=== PATIENT | male | born 1950 | race Caucasian/White ===

== ENCOUNTER 2017-11-25 20:48 | Emergency (ER) | payer BC, OTHER ==
[2017-11-25] MEDS ORDERED: Sodium Chloride 0.9% 10 ML Syringe FLUSH PRN (20:53)
[2017-11-25] MEDS ORDERED: Sodium Chloride 0.9% 1,000 ML IV ONE (20:53)
[2017-11-25] MEDS ORDERED: Sodium Chloride 0.9% 2.5 ML Syringe FLUSH PRN ×2 (20:53)
[2017-11-25] MEDS ORDERED: Aspirin 81 MG Tab.Chew PO ONE (20:53)
[2017-11-25] MEDS ORDERED: Nitroglycerin 0.4 MG Tab.SL SL ONE (20:53)
--- NOTE | 2017-11-25 21:06 | EDM.PDOC ---
ED HPI GENERAL MEDICAL PROBLEM - General Chief Complaint: General Stated Complaint: PAIN DOWN THE LT ARM Time Seen by Provider: 11/25/17 20:52 Source of Information: Reports: Patient History Limitations: Reports: No Limitations - History of Present Illness INITIAL COMMENTS - FREE TEXT/NARRATIVE: HISTORY AND PHYSICAL: History of present illness: 67-year-old male presenting to emergency department with chief complaint of chest pain 2 days with past medical history of [place] with stent on Plavix, hypertension, hyperlipidemia, current smoker. Patient states that for the past 2 days he has been having intermittent chest pain with radiation into the left arm. Currently he states that he is not having really any chest pain but is having some left arm pain. He has had some associated shortness of breath and diaphoresis but no nausea and vomiting. States that he took a baby aspirin today. He is on Plavix from his previous [place] which was 6 years ago. He did have a stent placed by Dr. Morales in [place] at that time. He has seen Dr. Morales in September and follows with Dr. Cortez in [place] as his primary care provider. Patient is a current smoker and states that he smokes a pack and half cigarettes daily for greater than 50 years. Denies any leg pain or hemoptysis. Denies any associated pop patients, syncopal episodes, or focal neurologic deficits. Initial EKG shows normal sinus rhythm with a rate of [address] changes. Review of systems: As per history of present illness and below otherwise all systems reviewed and negative. Past medical history: As per history of present illness and as reviewed below otherwise noncontributory. Surgical history: As per history of present illness and as reviewed below otherwise noncontributory. Social history: No reported history of drug or alcohol abuse. Family history: As per history of present illness and as reviewed below otherwise noncontributory. Physical exam: HEENT: Atraumatic, normocephalic, pupils reactive, negative for conjunctival pallor or scleral icterus, mucous membranes moist, throat clear, neck supple, nontender, trachea midline. Lungs: Clear to auscultation, breath sounds equal bilaterally, chest nontender. Heart: S1S2, regular, negative for clicks, rubs, or JVD. Abdomen: Soft, nondistended, nontender. Negative for masses or hepatosplenomegaly. Negative for costovertebral tenderness. Pelvis: Stable nontender. Genitourinary: Deferred. Rectal: Deferred. Extremities: Atraumatic, negative for cords or calf pain. Neurovascular unremarkable. Neuro: Awake, alert, oriented. Cranial nerves II through XII unremarkable. Cerebellum unremarkable. Motor and sensory unremarkable throughout. Exam nonfocal. Diagnostics: CBC, CMP, troponin, INR, d-dimer, UA, EKG, chest x-ray Therapeutics: 324 mg ASA 1, 0.4 mg sublingual nitroglycerin Impression: Chest pain Acute coronary syndrome Plan: CBC, CMP, troponin unremarkable. D-dimer was elevated mildly but Wells criteria low for PE. As above EKG showed normal sinus rhythm with no significant ST changes. Secondary to patient's cardiac history and acute coronary syndrome I did call Dr. Plasencia [facility], who accepted the patient for transfer for ACS. Patient was currently not having any chest pain in stable. Ground ambulance appropriate. Definitive disposition and diagnosis as appropriate pending reevaluation and review of above. left arm pain Pain Score (Numeric/FACES): 0 - Related Data Allergies Allergy/AdvReac Type Severity Reaction Status Date / Time Penicillins Allergy Difficulty Verified 08/13/14 19:52 Breathing Home Meds: Home Meds Albuterol [Proventil Neb Soln] 1 puff INH Q6H PRN 09/17/13 [History] Aspirin [Sera Chewable] 81 mg PO DAILY 09/17/13 [History] Clopidogrel [Plavix] 75 mg PO DAILY 09/17/13 [History] Metoprolol Succinate [Toprol XL 50mg] 50 mg PO DAILY 09/17/13 [History] atorvaSTATin [Lipitor] 20 mg PO BEDTIME 09/17/13 [History] Albuterol/Ipratropium [Combivent Respimat] 0 gm IH 11/25/17 [History] Fluticasone/Salmeterol [Advair 250-50] 1 puff INH DAILY 11/25/17 [History] Past Medical History HEENT History: Reports: Impaired Vision Cardiovascular History: Reports: High Cholesterol, Hypertension, [place], Stents Respiratory History: Reports: Asthma, Other (See Below) Other Respiratory History: smoker Genitourinary History: Reports: None Musculoskeletal History: Reports: Arthritis Neurological History: Reports: None Psychiatric History: Reports: None Endocrine/Metabolic History: Reports: None Dermatologic History: Reports: None - Infectious Disease History Infectious Disease History: Reports: Chicken Pox, Measles - Past Surgical History GI Surgical History: Reports: Appendectomy Male Surgical History: Reports: None Social & Family History - Family History Family Medical History: Noncontributory - Tobacco Use Smoking Status *Q: Current Every Day Smoker Years of Tobacco use: 50 Packs/Tins Daily: 1.5 - Recreational Drug Use Recreational Drug Use: No ED ROS GENERAL - Review of Systems Review Of Systems: ROS reveals no pertinent complaints other than HPI. ED EXAM, GENERAL - Physical Exam Exam: See Below Course - Vital Signs Last Recorded V/S: Last Vital Signs Temp 97.8 F 11/25/17 20:50 Pulse 70 11/25/17 21:17 Resp 18 11/25/17 21:17 BP 112/72 11/25/17 21:17 Pulse Ox 95 11/25/17 21:17 - Orders/Labs/Meds Orders: Active Orders 24 hr Category Date Time Status Cardiac Monitoring [RC] . DIRECTED Care 11/25/17 20:53 Active Oxygen Therapy [RC] ASDIRECTED Care 11/25/17 20:53 Active Pulse Oximetry [RC] ASDIRECTED Care 11/25/17 20:53 Active Chest 1V Frontal [CR] Stat Exams 11/25/17 20:53 Taken Sodium Chloride 0.9% [Saline Flush] Med 11/25/17 20:53 Active 10 ml FLUSH ASDIRECTED PRN Sodium Chloride 0.9% [Saline Flush] Med 11/25/17 20:53 Active 2.5 ml FLUSH ASDIRECTED PRN Sodium Chloride 0.9% [Saline Flush] Med 11/25/17 20:53 Active 2.5 ml FLUSH ASDIRECTED PRN Saline Lock Insert [OM.PC] Stat Oth 11/25/17 20:53 Ordered Medication Orders Sodium Chloride (Saline Flush) 2.5 ml FLUSH ASDIRECTED PRN PRN Reason: Keep Vein Open Sodium Chloride (Saline Flush) 10 ml FLUSH ASDIRECTED PRN PRN Reason: Keep Vein Open Sodium Chloride (Saline Flush) 2.5 ml FLUSH ASDIRECTED PRN PRN Reason: Keep Vein Open Labs: Laboratory Tests 11/25/17 11/25/17 11/25/17 Range/Units 21:04 21:04 21:04 WBC 11.93 H (4.0-11.0) K/uL RBC 4.97 (4.50-5.90) M/uL Hgb 15.8 (13.0-17.0) g/dL Hct 45.0 (38.0-50.0) % MCV 90.5 (80.0-98.0) fL MCH 31.8 (27.0-32.0) pg MCHC 35.1 (31.0-37.0) g/dL RDW Std Deviation 42.4 (28.0-62.0) fl RDW Coeff of Elizabeth 13 (11.0-15.0) % Plt Count 222 (150-400) K/uL MPV 10.20 (7.40-12.00) fL Neut % (Auto) 61.9 (48.0-80.0) % Lymph % (Auto) 23.3 (16.0-40.0) % [place] % (Auto) 12.7 (0.0-15.0) % Eos % (Auto) 1.9 (0.0-7.0) % Baso % (Auto) 0.2 (0.0-1.5) % Neut # (Auto) 7.4 H (1.4-5.7) K/uL Lymph # (Auto) 2.8 H (0.6-2.4) K/uL [place] # (Auto) 1.5 H (0.0-0.8) K/uL Eos # (Auto) 0.2 (0.0-0.7) K/uL Baso # (Auto) 0.0 (0.0-0.1) K/uL Nucleated RBC % 0.0 /100WBC Nucleated RBCs # 0 K/uL INR 0.97 D-Dimer, Quantitative 1.63 H (0.0-0.52) mg/LFEU Sodium 136 (136-148) mmol/L Potassium 3.7 (3.5-5.1) mmol/L Chloride 101 (98-107) mmol/L Carbon Dioxide 26.2 (21.0-32.0) mmol/L BUN 31 H (7.0-18.0) mg/dL Creatinine 1.6 H (0.8-1.3) mg/dL Est Cr Clr Drug Dosing 55.00 mL/min Estimated GFR (MDRD) 43.3 ml/min Glucose 100 (74-106) mg/dL Calcium 9.2 (8.5-10.1) mg/dL Total Bilirubin 0.3 (0.2-1.0) mg/dL AST 32 (15-37) IU/L ALT 31 (14-63) IU/L Alkaline Phosphatase 69 (46-116) U/L Troponin I < 0.050 (0.000-0.056) ng/mL Total Protein 7.3 (6.4-8.2) g/dL Albumin 3.9 (3.4-5.0) g/dL Globulin 3.4 (2.0-3.5) g/dL Albumin/Globulin Ratio 1.1 L (1.3-2.8) Lipase 118 (73-393) U/L Urine Color Urine Appearance Urine pH (5.0-8.0) Ur Specific [place] (1.001-1.035) Urine Protein (NEGATIVE) mg/dL Urine Glucose (UA) (NEGATIVE) mg/dL Urine Ketones (NEGATIVE) mg/dL Urine Occult Blood (NEGATIVE) Urine Nitrite (NEGATIVE) Urine Bilirubin (NEGATIVE) Urine Urobilinogen (<2.0) EU/dL Ur Leukocyte Esterase (NEGATIVE) Urine RBC (0-2/HPF) Urine WBC (0-5/HPF) Ur Epithelial Cells (NONE-FEW) Urine Bacteria (NEGATIVE) 11/25/17 Range/Units 21:22 WBC (4.0-11.0) K/uL RBC (4.50-5.90) M/uL Hgb (13.0-17.0) g/dL Hct (38.0-50.0) % MCV (80.0-98.0) fL MCH (27.0-32.0) pg MCHC (31.0-37.0) g/dL RDW Std Deviation (28.0-62.0) fl RDW Coeff of [place] (11.0-15.0) % Plt Count (150-400) K/uL MPV (7.40-12.00) fL Neut % (Auto) (48.0-80.0) % Lymph % (Auto) (16.0-40.0) % [place] % (Auto) (0.0-15.0) % Eos % (Auto) (0.0-7.0) % Baso % (Auto) (0.0-1.5) % Neut # (Auto) (1.4-5.7) K/uL Lymph # (Auto) (0.6-2.4) K/uL [place] # (Auto) (0.0-0.8) K/uL Eos # (Auto) (0.0-0.7) K/uL Baso # (Auto) (0.0-0.1) K/uL Nucleated RBC % /100WBC Nucleated RBCs # K/uL INR D-Dimer, Quantitative (0.0-0.52) mg/LFEU Sodium (136-148) mmol/L Potassium (3.5-5.1) mmol/L Chloride (98-107) mmol/L Carbon Dioxide (21.0-32.0) mmol/L BUN (7.0-18.0) mg/dL Creatinine (0.8-1.3) mg/dL Est Cr Clr Drug Dosing mL/min Estimated GFR (MDRD) ml/min Glucose (74-106) mg/dL Calcium (8.5-10.1) mg/dL Total Bilirubin (0.2-1.0) mg/dL AST (15-37) IU/L ALT (14-63) IU/L Alkaline Phosphatase (46-116) U/L Troponin I (0.000-0.056) ng/mL Total Protein (6.4-8.2) g/dL Albumin (3.4-5.0) g/dL Globulin (2.0-3.5) g/dL Albumin/Globulin Ratio (1.3-2.8) Lipase (73-393) U/L Urine Color YELLOW Urine Appearance CLEAR Urine pH 6.0 (5.0-8.0) Ur Specific [place] <= 1.005 (1.001-1.035) Urine Protein NEGATIVE (NEGATIVE) mg/dL Urine Glucose (UA) NEGATIVE (NEGATIVE) mg/dL Urine Ketones NEGATIVE (NEGATIVE) mg/dL Urine Occult Blood NEGATIVE (NEGATIVE) Urine Nitrite NEGATIVE (NEGATIVE) Urine Bilirubin NEGATIVE (NEGATIVE) Urine Urobilinogen 0.2 (<2.0) EU/dL Ur Leukocyte Esterase NEGATIVE (NEGATIVE) Urine RBC 0-1 (0-2/HPF) Urine WBC 0-1 (0-5/HPF) Ur Epithelial Cells RARE (NONE-FEW) Urine Bacteria RARE (NEGATIVE) Meds: Medications Generic Name Dose Route Start Last Admin Trade Name Ashley PRN Reason Stop Dose Admin Sodium Chloride 2.5 ml 11/25/17 20:53 Saline Flush FLUSH ASDIRECTED PRN Keep Vein Open Sodium Chloride 10 ml 11/25/17 20:53 Saline Flush FLUSH ASDIRECTED PRN Keep Vein Open Sodium Chloride 2.5 ml 11/25/17 20:53 Saline Flush FLUSH ASDIRECTED PRN Keep Vein Open Discontinued Medications Generic Name Dose Route Start Last Admin Trade Name Ashley PRN Reason Stop Dose Admin Aspirin 324 mg 11/25/17 20:53 11/25/17 21:10 Aspirin PO 11/25/17 20:54 324 mg ONETIME ONE Administration Sodium Chloride 1,000 mls @ 999 mls/hr 11/25/17 20:53 11/25/17 21:09 Normal Saline IV 11/25/17 21:53 999 mls/hr BOLUS ONE Administration Nitroglycerin 0.4 mg 11/25/17 20:53 11/25/17 21:08 Nitrostat SL 11/25/17 20:54 0.4 mg ONETIME ONE Administration Departure - Departure Time of Disposition: 22:04 Disposition: DC/Tfer to Acute Hospital 02 Condition: Fair Clinical Impression: Acute coronary syndrome Chest pain Qualifiers: Chest pain type: chest pain due to myocardial ischemia Ischemic chest pain type : unspecified angina pectoris type Qualified Code(s): I25.9 - Chronic ischemic heart disease, unspecified - Discharge Information Forms: ED Department Discharge - My Orders Last 24 Hours: My Active Orders 11/25/17 20:53 Cardiac Monitoring [RC] . DIRECTED Oxygen Therapy [RC] ASDIRECTED Pulse Oximetry [RC] ASDIRECTED Chest 1V Frontal [CR] Stat Sodium Chloride 0.9% [Saline Flush] 10 ml FLUSH ASDIRECTED PRN Sodium Chloride 0.9% [Saline Flush] 2.5 ml FLUSH ASDIRECTED PRN Sodium Chloride 0.9% [Saline Flush] 2.5 ml FLUSH ASDIRECTED PRN Saline Lock Insert [OM.PC] Stat - Assessment/Plan Last 24 Hours: My Active Orders 11/25/17 20:53 Cardiac Monitoring [RC] . DIRECTED Oxygen Therapy [RC] ASDIRECTED Pulse Oximetry [RC] ASDIRECTED Chest 1V Frontal [CR] Stat Sodium Chloride 0.9% [Saline Flush] 10 ml FLUSH ASDIRECTED PRN Sodium Chloride 0.9% [Saline Flush] 2.5 ml FLUSH ASDIRECTED PRN Sodium Chloride 0.9% [Saline Flush] 2.5 ml FLUSH ASDIRECTED PRN Saline Lock Insert [OM.PC] Stat
[2017-11-25 21:35] LABS: CHLORIDE,CL 101 mmol/L (98-107); SODIUM,NA 136 mmol/L (136-148)
[2017-11-25 22:08] VITALS: BP 130/67
--- NOTE | 2017-11-27 14:02 | CR ---
EXAM DATE: 11/25/17 PATIENT'S AGE: 67 Patient: THALIA STACY Facility: [facility] Site . Site : 1950 Study: XRay-Chest [id number] 9:30:49 PM Ordering Physician: Doctor Peters Final Report: INDICATION: left arm pain, pt states he is not having chest pain TECHNIQUE: Chest 1 view. COMPARISON: None. FINDINGS: Cardiovascular and mediastinum: Heart size and vasculature are normal in caliber and appearance. Mediastinum is within normal limits. Lungs and pleural space: Lungs are clear. No sign of infiltrate or mass. No sign of pleural effusion. No pneumothorax. Bones and soft tissues: No significant findings. IMPRESSION: Unremarkable chest. Dictated by: Clive Naik MD @ 11/25/2017 21:32:00 Signed by: Clive Naik MD @11/25/2017 9:32:00 PM (Electronic Signature) Report Signed by Proxy. [facility]PITAL[facility]ila
== END 2017-11-25 22:50 ==
LOC: MW.ED 20:48
DX: I24.9 Acute ischemic heart disease, unspecified (principal); I10 Essential (primary) hypertension; I25.2 Old myocardial infarction; Z95.5 Presence of coronary angioplasty implant and graft; E78.5 Hyperlipidemia, unspecified; F17.210 Nicotine dependence, cigarettes, uncomplicated; Z88.0 Allergy status to penicillin; Z79.82 Long term (current) use of aspirin; Z79.899 Other long term (current) drug therapy
CPT/HCPCS: 36415; 71045; 80053; 81001; 83690; 84484; 85025; 85379; 85610; 93005; 96360; 99285; A9270; J7040

== ENCOUNTER 2018-08-20 08:13 | Emergency (ER) | payer MEDICARE, BC ==
[2018-08-20 08:28] VITALS: BP 97/79
--- NOTE | 2018-08-20 09:34 | CR ---
EXAMINATION: Left knee HISTORY: Pain COMPARISON: 01/06/2018 TECHNIQUE: 3 views FINDINGS/IMPRESSION: There is moderate joint space narrowing within the patellofemoral compartment and more so within the medial compartment. There is no fracture or acute osseous abnormality. Bone mineralization is normal. Moderate prepatellar soft tissue thickening.
--- NOTE | 2018-08-20 09:41 | EDM.PDOC ---
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 Past medical history: As per history of present illness and as reviewed below otherwise noncontributory. Surgical history: As per history of present illness and as reviewed below otherwise noncontributory. Social history: No reported history of drug or alcohol abuse. Family history: As per history of present illness and as reviewed below otherwise noncontributory. Physical exam: HEENT: Atraumatic, normocephalic, pupils reactive, negative for conjunctival pallor or scleral icterus, mucous membranes moist, throat clear, neck supple, nontender, trachea midline. Lungs: Clear to auscultation, breath sounds equal bilaterally, chest nontender. Heart: S1S2, regular, negative for clicks, rubs, or JVD. Abdomen: Soft, nondistended, nontender. Negative for masses or hepatosplenomegaly. Negative for costovertebral tenderness. Pelvis: Stable nontender. Genitourinary: Deferred. Rectal: Deferred. Extremities: Atraumatic, negative for cords or calf pain. Neurovascular unremarkable. Left knee as per history of present illness Neuro: Awake, alert, oriented. Cranial nerves II through XII unremarkable. Cerebellum unremarkable. Motor and sensory unremarkable throughout. Exam nonfocal. Diagnostics: [ of knee 3 views ] Therapeutics: [ rest ice Indocin 1 week off of work] Follow-up with orthopedist Impression: Left knee pain Definitive disposition and diagnosis as appropriate pending reevaluation and review of above. left knee Pain Score (Numeric/FACES): 8 - Related Data Allergies Allergy/AdvReac Type Severity Reaction Status Date / Time Penicillins Allergy Difficulty Verified 08/13/14 19:52 Breathing Home Meds: Home Meds Albuterol [Proventil Neb Soln] 1 puff INH Q6H PRN 09/17/13 [History] Aspirin [Sera Chewable] 81 mg PO DAILY 09/17/13 [History] Clopidogrel [Plavix] 75 mg PO DAILY 09/17/13 [History] atorvaSTATin [Lipitor] 20 mg PO BEDTIME 09/17/13 [History] Albuterol/Ipratropium [Combivent Respimat] 0 gm IH 11/25/17 [History] Fluticasone/Salmeterol [Advair 250-50] 1 puff INH DAILY 11/25/17 [History] oxyCODONE tab PO 08/20/18 [History] Past Medical History HEENT History: Reports: Impaired Vision Cardiovascular History: Reports: High Cholesterol, Hypertension, [place], Stents Other Cardiovascular History: heart surgery in april 2018 Respiratory History: Reports: Asthma, Other (See Below) Other Respiratory History: smoker Genitourinary History: Reports: None Musculoskeletal History: Reports: Arthritis Neurological History: Reports: None Psychiatric History: Reports: None Endocrine/Metabolic History: Reports: None Dermatologic History: Reports: None - Infectious Disease History Infectious Disease History: Reports: Chicken Pox, Measles - Past Surgical History GI Surgical History: Reports: Appendectomy Male Surgical History: Reports: None Social & Family History - Family History Family Medical History: Noncontributory - Tobacco Use Smoking Status *Q: Former Smoker Used Tobacco, but Quit: Yes Month/Year Tobacco Last Used: 04/2018 - Recreational Drug Use Recreational Drug Use: No Review of Systems - Review of Systems Review Of Systems: See Below ED EXAM, GENERAL - Physical Exam Exam: See Below Course - Vital Signs Last Recorded V/S: Last Vital Signs Temp 96.5 F 08/20/18 08:25 Pulse 79 08/20/18 08:25 Resp 18 08/20/18 08:25 BP 97/79 08/20/18 08:25 Pulse Ox 95 08/20/18 08:25 - Orders/Labs/Meds Labs: Laboratory Tests 08/20/18 08/20/18 Range/Units 08:43 08:43 WBC 8.16 (4.0-11.0) K/uL RBC 4.81 (4.50-5.90) M/uL Hgb 14.1 (13.0-17.0) g/dL Hct 43.1 (38.0-50.0) % MCV 89.6 (80.0-98.0) fL MCH 29.3 (27.0-32.0) pg MCHC 32.7 (31.0-37.0) g/dL RDW Std Deviation 44.9 (28.0-62.0) fl RDW Coeff of Elizabeth 14 (11.0-15.0) % Plt Count 214 (150-400) K/uL MPV 10.20 (7.40-12.00) fL Neut % (Auto) 63.8 (48.0-80.0) % Lymph % (Auto) 23.4 (16.0-40.0) % [place] % (Auto) 10.3 (0.0-15.0) % Eos % (Auto) 2.3 (0.0-7.0) % Baso % (Auto) 0.2 (0.0-1.5) % Neut # (Auto) 5.2 (1.4-5.7) K/uL Lymph # (Auto) 1.9 (0.6-2.4) K/uL [place] # (Auto) 0.8 (0.0-0.8) K/uL Eos # (Auto) 0.2 (0.0-0.7) K/uL Baso # (Auto) 0.0 (0.0-0.1) K/uL Nucleated RBC % 0.0 /100WBC Nucleated RBCs # 0 K/uL Uric Acid 6.2 (2.6-7.2) mg/dL Departure - Departure Time of Disposition: 09:40 Disposition: Home, Self-Care 01 Condition: Good Clinical Impression: Left knee pain - Discharge Information Referrals: PCP,None [Primary Care Provider] - Forms: ED Department Discharge Additional Instructions: Medication as prescribed Return if symptoms persist or worsen Follow-up with orthopedist, call phone number below to schedule appropriate follow-up [facility] [address], [address] [place] [address] my orthopedic The following information is given to patients seen in the emergency department who are being discharged to home. This information is to outline your options for follow-up care. We provide all patients seen in our emergency department with a follow-up referral. The need for follow-up, as well as the timing and circumstances, are variable depending upon the specifics of your emergency department visit. If you don't have a primary care physician on staff, we will provide you with a referral. We always advise you to contact your personal physician following an emergency department visit to inform them of the circumstance of the visit and for follow-up with them and/or the need for any referrals to a consulting specialist. The emergency department will also refer you to a specialist when appropriate. This referral assures that you have the opportunity for follow-up care with a specialist. All of these measure are taken in an effort to provide you with optimal care, which includes your follow-up. Under all circumstances we always encourage you to contact your private physician who remains a resource for coordinating your care. When calling for follow-up care, please make the office aware that this follow-up is from your recent emergency room visit. If for any reason you are refused follow-up, please contact the [facility] emergency department at and asked to speak to the emergency department charge nurse.
== END 2018-08-20 09:55 | disposition home or self-care (01) ==
LOC: MW.ED 08:13
DX: M25.562 Pain in left knee (principal); E78.00 Pure hypercholesterolemia, unspecified; I10 Essential (primary) hypertension; J45.909 Unspecified asthma, uncomplicated; Z88.0 Allergy status to penicillin; Z79.82 Long term (current) use of aspirin; Z79.899 Other long term (current) drug therapy; Z79.02 Long term (current) use of antithrombotics/antiplatelets; Z87.891 Personal history of nicotine dependence
CPT/HCPCS: 36415; 73562-26-LT; 73562-LT; 84550; 85025; 99282; 99283-25

== ENCOUNTER 2018-10-18 15:02 | Emergency (ER) | payer BC, OTHER ==
[2018-10-18] MEDS ORDERED: Albuterol/Ipratropium 3.0-0.5 MG/3 ML Neb Soln NEB ONE (15:09)
--- NOTE | 2018-10-18 15:12 | EDM.PDOC ---
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 Review of systems: As per history of present illness and below otherwise all systems reviewed and negative. Past medical history: As per history of present illness and as reviewed below otherwise noncontributory. Surgical history: As per history of present illness and as reviewed below otherwise noncontributory. Social history: No reported history of drug or alcohol abuse. Family history: As per history of present illness and as reviewed below otherwise noncontributory. Physical exam: HEENT: Atraumatic, normocephalic, pupils reactive, negative for conjunctival pallor or scleral icterus, mucous membranes moist, throat clear, neck supple, nontender, trachea midline. Lungs: Diminished breath sounds equal bilaterally, chest nontender. Heart: S1S2, regular, negative for clicks, rubs, or JVD. Abdomen: Soft, nondistended, nontender. Negative for masses or hepatosplenomegaly. Negative for costovertebral tenderness. Pelvis: Stable nontender. Genitourinary: Deferred. Rectal: Deferred. Extremities: Atraumatic, negative for cords or calf pain. Neurovascular unremarkable. Neuro: Awake, alert, oriented. Cranial nerves II through XII unremarkable. Cerebellum unremarkable. Motor and sensory unremarkable throughout. Exam nonfocal. Diagnostics: CBC CMP troponin BNP d-dimer chest x-ray EKG Therapeutics: IV O2 monitor albuterol ipratropium nebulizer Impression: #1 right-sided chest pain #2 dyspnea #3 history of coronary artery disease Definitive disposition and diagnosis as appropriate pending reevaluation and review of above. - Related Data Allergies Allergy/AdvReac Type Severity Reaction Status Date / Time Penicillins Allergy Difficulty Verified 10/18/18 15:14 Breathing Home Meds: Home Meds Albuterol [Proventil Neb Soln] 1 puff INH Q6H PRN 07/25/14 [History] Aspirin [Sera Chewable] 81 mg PO DAILY 09/17/13 [History] Clopidogrel [Plavix] 75 mg PO DAILY 09/17/13 [History] atorvaSTATin [Lipitor] 20 mg PO BEDTIME 09/17/13 [History] Albuterol/Ipratropium [Combivent Respimat] 0 gm IH 11/25/17 [History] Fluticasone/Salmeterol [Advair 250-50] 1 puff INH DAILY 11/25/17 [History] oxyCODONE tab PO 08/20/18 [History] Past Medical History HEENT History: Reports: Impaired Vision Cardiovascular History: Reports: High Cholesterol, Hypertension, [place], Stents Other Cardiovascular History: heart surgery in april 2018 Respiratory History: Reports: Asthma, Other (See Below) Other Respiratory History: smoker Genitourinary History: Reports: None Musculoskeletal History: Reports: Arthritis Neurological History: Reports: None Psychiatric History: Reports: None Endocrine/Metabolic History: Reports: None Dermatologic History: Reports: None - Infectious Disease History Infectious Disease History: Reports: Chicken Pox, Measles - Past Surgical History GI Surgical History: Reports: Appendectomy Male Surgical History: Reports: None Social & Family History - Family History Family Medical History: Noncontributory ED ROS GENERAL - Review of Systems Review Of Systems: ROS reveals no pertinent complaints other than HPI. ED EXAM, GENERAL - Physical Exam Exam: See Below (See dictation) Course - Vital Signs Text/Narrative:: Discussed with patient and family diagnostics at this point and admission for observation they declined will follow-up with primary care and CTA tomorrow as discussed understand risk-benefit. Last Recorded V/S: Last Vital Signs Temp 35.9 C 10/18/18 15:08 Pulse 79 10/18/18 16:10 Resp 18 10/18/18 16:10 BP 153/82 H 10/18/18 16:10 Pulse Ox 97 10/18/18 16:10 - Orders/Labs/Meds Orders: Active Orders 24 hr Category Date Time Status Cardiac Monitoring [RC] . DIRECTED Care 10/18/18 15:23 Active EKG Documentation Completion [RC] STAT Care 10/18/18 15:23 Active RT Aerosol Therapy [RC] ASDIRECTED Care 10/18/18 15:10 Active Sodium Chloride 0.9% [Saline Flush] Med 10/18/18 15:23 Active 10 ml FLUSH ASDIRECTED PRN Sodium Chloride 0.9% [Saline Flush] Med 10/18/18 15:23 Active 2.5 ml FLUSH ASDIRECTED PRN Saline Lock Insert [OM.PC] Stat Oth 10/18/18 15:23 Ordered Medication Orders Sodium Chloride (Saline Flush) 10 ml FLUSH ASDIRECTED PRN PRN Reason: Keep Vein Open Last Admin: 10/18/18 15:29 Dose: 10 ml Sodium Chloride (Saline Flush) 2.5 ml FLUSH ASDIRECTED PRN PRN Reason: Keep Vein Open Last Admin: 10/18/18 15:29 Dose: 2.5 ml Labs: Laboratory Tests 10/18/18 10/18/18 10/18/18 Range/Units 15:20 15:20 15:20 WBC 8.58 (4.0-11.0) K/uL RBC 5.05 (4.50-5.90) M/uL Hgb 14.8 (13.0-17.0) g/dL Hct 44.9 (38.0-50.0) % MCV 88.9 (80.0-98.0) fL MCH 29.3 (27.0-32.0) pg MCHC 33.0 (31.0-37.0) g/dL RDW Std Deviation 48.6 (28.0-62.0) fl RDW Coeff of Elizabeth 15 (11.0-15.0) % Plt Count 227 (150-400) K/uL MPV 9.90 (7.40-12.00) fL Neut % (Auto) 61.8 (48.0-80.0) % Lymph % (Auto) 25.2 (16.0-40.0) % Cottle % (Auto) 9.6 (0.0-15.0) % Eos % (Auto) 3.3 (0.0-7.0) % Baso % (Auto) 0.1 (0.0-1.5) % Neut # (Auto) 5.3 (1.4-5.7) K/uL Lymph # (Auto) 2.2 (0.6-2.4) K/uL Cottle # (Auto) 0.8 (0.0-0.8) K/uL Eos # (Auto) 0.3 (0.0-0.7) K/uL Baso # (Auto) 0.0 (0.0-0.1) K/uL Nucleated RBC % 0.0 /100WBC Nucleated RBCs # 0 K/uL INR 0.97 D-Dimer, Quantitative 1.57 H (0.0-0.50) mg/L FEU Sodium 142 (136-148) mmol/L Potassium 4.3 (3.5-5.1) mmol/L Chloride 105 (98-107) mmol/L Carbon Dioxide 28.2 (21.0-32.0) mmol/L BUN 22 H (7.0-18.0) mg/dL Creatinine 1.2 (0.8-1.3) mg/dL Est Cr Clr Drug Dosing 72.33 mL/min Estimated GFR (MDRD) > 60.0 ml/min Glucose 108 H (74-106) mg/dL Calcium 9.1 (8.5-10.1) mg/dL Total Bilirubin 0.4 (0.2-1.0) mg/dL AST 22 (15-37) IU/L ALT 31 (14-63) IU/L Alkaline Phosphatase 81 (46-116) U/L Troponin I < 0.050 (0.000-0.056) ng/mL B-Natriuretic Peptide (<100) PG/ML Total Protein 6.5 (6.4-8.2) g/dL Albumin 3.5 (3.4-5.0) g/dL Globulin 3.0 (2.6-4.0) g/dL Albumin/Globulin Ratio 1.2 (0.9-1.6) 10/18/18 Range/Units 15:20 WBC (4.0-11.0) K/uL RBC (4.50-5.90) M/uL Hgb (13.0-17.0) g/dL Hct (38.0-50.0) % MCV (80.0-98.0) fL MCH (27.0-32.0) pg MCHC (31.0-37.0) g/dL RDW Std Deviation (28.0-62.0) fl RDW Coeff of Elizabeth (11.0-15.0) % Plt Count (150-400) K/uL MPV (7.40-12.00) fL Neut % (Auto) (48.0-80.0) % Lymph % (Auto) (16.0-40.0) % Cottle % (Auto) (0.0-15.0) % Eos % (Auto) (0.0-7.0) % Baso % (Auto) (0.0-1.5) % Neut # (Auto) (1.4-5.7) K/uL Lymph # (Auto) (0.6-2.4) K/uL Cottle # (Auto) (0.0-0.8) K/uL Eos # (Auto) (0.0-0.7) K/uL Baso # (Auto) (0.0-0.1) K/uL Nucleated RBC % /100WBC Nucleated RBCs # K/uL INR D-Dimer, Quantitative (0.0-0.50) mg/L FEU Sodium (136-148) mmol/L Potassium (3.5-5.1) mmol/L Chloride (98-107) mmol/L Carbon Dioxide (21.0-32.0) mmol/L BUN (7.0-18.0) mg/dL Creatinine (0.8-1.3) mg/dL Est Cr Clr Drug Dosing mL/min Estimated GFR (MDRD) ml/min Glucose (74-106) mg/dL Calcium (8.5-10.1) mg/dL Total Bilirubin (0.2-1.0) mg/dL AST (15-37) IU/L ALT (14-63) IU/L Alkaline Phosphatase (46-116) U/L Troponin I (0.000-0.056) ng/mL B-Natriuretic Peptide 181 H (<100) PG/ML Total Protein (6.4-8.2) g/dL Albumin (3.4-5.0) g/dL Globulin (2.6-4.0) g/dL Albumin/Globulin Ratio (0.9-1.6) Meds: Medications Generic Name Dose Route Start Last Admin Trade Name Freq PRN Reason Stop Dose Admin Sodium Chloride 10 ml 10/18/18 15:23 10/18/18 15:29 Saline Flush FLUSH 10 ml ASDIRECTED PRN Administration Keep Vein Open Sodium Chloride 2.5 ml 10/18/18 15:23 10/18/18 15:29 Saline Flush FLUSH 2.5 ml ASDIRECTED PRN Administration Keep Vein Open Discontinued Medications Generic Name Dose Route Start Last Admin Trade Name Freq PRN Reason Stop Dose Admin Albuterol/Ipratropium 3 ml 10/18/18 15:09 10/18/18 15:29 Duoneb 3.0-0.5 Mg/3 Ml NEB 10/18/18 15:10 3 ml ONETIME ONE Administration Departure - Departure Time of Disposition: 16:51 Disposition: Home, Self-Care 01 Condition: Good Clinical Impression: Atypical chest pain - Discharge Information Referrals: PCP,Unknown [Primary Care Provider] - Forms: ED Department Discharge Additional Instructions: The following information is given to patients seen in the emergency department who are being discharged to home. This information is to outline your options for follow-up care. We provide all patients seen in our emergency department with a follow-up referral. The need for follow-up, as well as the timing and circumstances, are variable depending upon the specifics of your emergency department visit. If you don't have a primary care physician on staff, we will provide you with a referral. We always advise you to contact your personal physician following an emergency department visit to inform them of the circumstance of the visit and for follow-up with them and/or the need for any referrals to a consulting specialist. The emergency department will also refer you to a specialist when appropriate. This referral assures that you have the opportunity for followup care with a specialist. All of these measure are taken in an effort to provide you with optimal care, which includes your followup. Under all circumstances we always encourage you to contact your private physician who remains a resource for coordinating your care. When calling for followup care, please make the office aware that this follow-up is from your recent emergency room visit. If for any reason you are refused follow-up, please contact the [facility] emergency department at and asked to speak to the emergency department charge nurse. Follow-up with CTA of chest tomorrow as discussed with primary care continue current medications and return as needed as discussed - My Orders Last 24 Hours: My Active Orders 10/18/18 15:10 RT Aerosol Therapy [RC] ASDIRECTED 10/18/18 15:23 Cardiac Monitoring [RC] . DIRECTED EKG Documentation Completion [RC] STAT Sodium Chloride 0.9% [Saline Flush] 10 ml FLUSH ASDIRECTED PRN Sodium Chloride 0.9% [Saline Flush] 2.5 ml FLUSH ASDIRECTED PRN Saline Lock Insert [OM.PC] Stat - Assessment/Plan Last 24 Hours: My Active Orders 10/18/18 15:10 RT Aerosol Therapy [RC] ASDIRECTED 10/18/18 15:23 Cardiac Monitoring [RC] . DIRECTED EKG Documentation Completion [RC] STAT Sodium Chloride 0.9% [Saline Flush] 10 ml FLUSH ASDIRECTED PRN Sodium Chloride 0.9% [Saline Flush] 2.5 ml FLUSH ASDIRECTED PRN Saline Lock Insert [OM.PC] Stat
[2018-10-18] MEDS ORDERED: Sodium Chloride 0.9% 10 ML Syringe FLUSH PRN (15:23)
[2018-10-18] MEDS ORDERED: Sodium Chloride 0.9% 2.5 ML Syringe FLUSH PRN (15:23)
--- NOTE | 2018-10-18 15:45 | CR ---
Indication: Chest pain. Technique: A single AP portable view of the chest was obtained. Comparison: November 25, 2017. Findings: FindingsThe left hemidiaphragm is elevated. The heart is borderline in size. Median sternotomy wires are identified. No infiltrate, pleural effusion, or pneumothorax is identified. Impression: No acute cardiopulmonary process Dictated by Dee Mar MD @ Oct 18 2018 3:41PM Signed by Dr. Dee Mar @ Oct 18 2018 3:42PM
[2018-10-18 16:01] LABS: CHLORIDE,CL 105 mmol/L (98-107); SODIUM,NA 142 mmol/L (136-148)
[2018-10-18 17:05] VITALS: BP 178/90
== END 2018-10-18 17:05 | disposition home or self-care (01) ==
LOC: MW.ED 15:02
DX: R07.89 Other chest pain (principal); R06.09 Other forms of dyspnea; I25.10 Atherosclerotic heart disease of native coronary artery without angina pectoris; E78.00 Pure hypercholesterolemia, unspecified; I10 Essential (primary) hypertension; I25.2 Old myocardial infarction; J45.909 Unspecified asthma, uncomplicated; Z88.0 Allergy status to penicillin; Z79.899 Other long term (current) drug therapy; Z79.82 Long term (current) use of aspirin; Z79.02 Long term (current) use of antithrombotics/antiplatelets
CPT/HCPCS: 36415; 71045; 71045-26; 80053; 83880; 84484; 85025; 85379; 85610; 93005; 99284; 99285-25; J7620-GY

== ENCOUNTER 2018-11-08 20:02 | Emergency (ER) | payer MEDICARE, BC, OTHER ==
[2018-11-08] MEDS ORDERED: Tetracaine HCl/PF 0.5% 4 ML Bottle EYERT ONE (20:27)
[2018-11-08] MEDS ORDERED: Tetracaine HCl/PF 0.5% 4 ML Bottle ONE (20:29)
--- NOTE | 2018-11-08 20:39 | EDM.PDOC ---
ED HPI GENERAL MEDICAL PROBLEM - General Chief Complaint: Eye Problems Stated Complaint: PER PT, HE SPOKE TO NURSE Time Seen by Provider: 11/08/18 20:28 - History of Present Illness INITIAL COMMENTS - FREE TEXT/NARRATIVE: HISTORY AND PHYSICAL: History of present illness: The patient is a 68-year-old male who says that he has glasses that he supposed to wear but he does not wear them and presents with a foreign body sensation in the upper part of his right eye that started last evening. 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 He said that he was rubbing it a lot last evening but he did not irrigate the eye and it persisted all day but he thought it would get better and he delayed coming in here until this evening. He has no facial pain no systemic complaints and has never had any eye surgery. He was told in the past he had the start of cataracts and he used medications for a while and that improved. He currently is not using any eye medication Review of systems: As per history of present illness and below otherwise all systems reviewed and negative. Past medical history: As per history of present illness and as reviewed below otherwise noncontributory. Surgical history: As per history of present illness and as reviewed below otherwise noncontributory. Social history: No reported history of drug or alcohol abuse. Family history: As per history of present illness and as reviewed below otherwise noncontributory. Physical exam: General: Well-developed well-nourished man who is nontoxic and has no facial swelling or periorbital swelling. The right eyelid and periorbital area has no edema and there is no gross drainage appreciated HEENT: Atraumatic, normocephalic, pupils reactive, EOMs are intact, the conjunctiva is normal and the sclera is only minimally injected and the patient keeps rubbing his eye on my evaluation, no foreign bodies are appreciated grossly or with fluoroscein stain. Please see below for fluoroscein stain results, negative for conjunctival pallor or scleral icterus, mucous membranes moist, throat clear, neck supple, nontender, trachea midline. Lungs: Clear to auscultation, breath sounds equal bilaterally, chest nontender. Heart: S1S2, regular rate and rhythm no overt murmurs Abdomen: Soft, nondistended, nontender. Negative for masses or hepatosplenomegaly. Negative for costovertebral tenderness. Pelvis: Stable nontender. Genitourinary: Deferred. Rectal: Deferred. Extremities: Atraumatic, negative for cords or calf pain. Neurovascular unremarkable. Neuro: Awake, alert, oriented. Cranial nerves II through XII unremarkable. Cerebellum unremarkable. Motor and sensory unremarkable throughout. Exam nonfocal. Diagnostics: Visual acuity per nursing--patient is supposed to be wearing glasses and does not have those lenses with him so this result is without corrective lenses Fluoroscein stain was performed by me after tetracaine instillation in the right eye. There is a diffuse area of uptake clearly visible on the upper portion of the cornea above the iris consistent with a corneal abrasion and no foreign body was appreciated. A Q-tip was used to swab the surface of the upper eyelid without any foreign objects appreciated. The patient tolerated this well. Therapeutics: [] Impression: Corneal abrasion right eye Definitive disposition and diagnosis as appropriate pending reevaluation and review of above. right eye Pain Score (Numeric/FACES): 6 - Related Data Allergies Allergy/AdvReac Type Severity Reaction Status Date / Time Penicillins Allergy Difficulty Verified 11/08/18 20:22 Breathing Home Meds: Home Meds Albuterol [Proventil Neb Soln] 1 puff INH Q6H PRN 09/17/13 [History] Aspirin [Sera Chewable] 81 mg PO DAILY 09/17/13 [History] Clopidogrel [Plavix] 75 mg PO DAILY 09/17/13 [History] atorvaSTATin [Lipitor] 20 mg PO BEDTIME 09/17/13 [History] Albuterol/Ipratropium [Combivent Respimat] 0 gm IH ASDIRECTED 11/25/17 [History] Fluticasone/Salmeterol [Advair 250-50] 1 puff INH DAILY 11/25/17 [History] oxyCODONE 5 tab PO ASDIRECTED 08/20/18 [History] Past Medical History HEENT History: Reports: Impaired Vision Cardiovascular History: Reports: High Cholesterol, Hypertension, [place], Stents Other Cardiovascular History: heart surgery in april 2018 Respiratory History: Reports: Asthma, Other (See Below) Other Respiratory History: smoker Gastrointestinal History: Reports: None Genitourinary History: Reports: None Musculoskeletal History: Reports: Arthritis Neurological History: Reports: None Psychiatric History: Reports: None Endocrine/Metabolic History: Reports: None Insulin Pump Model and County Sheriff: N/A Hematologic History: Reports: None Immunologic History: Reports: None Oncologic (Cancer) History: Reports: None Dermatologic History: Reports: None - Infectious Disease History Infectious Disease History: Reports: None - Past Surgical History Head Surgeries/Procedures: Reports: None GI Surgical History: Reports: Appendectomy Male Surgical History: Reports: None Social & Family History - Family History Family Medical History: Noncontributory - Tobacco Use Smoking Status *Q: Former Smoker Used Tobacco, but Quit: No - Caffeine Use Caffeine Use: Reports: Coffee - Recreational Drug Use Recreational Drug Use: No ED ROS GENERAL - Review of Systems Review Of Systems: ROS reveals no pertinent complaints other than HPI. ED EXAM GENERAL W FULL EYE - Physical Exam Exam: See Below (see dictation) Course - Vital Signs Last Recorded V/S: Last Vital Signs Temp 36.0 C 11/08/18 20:22 Pulse 80 11/08/18 20:22 Resp 18 11/08/18 20:22 BP 211/108 H 11/08/18 20:22 Pulse Ox 96 11/08/18 20:22 - Orders/Labs/Meds Orders: Active Orders 24 hr Category Date Time Status Communication Order [RC] STAT Care 11/08/18 20:28 Active Meds: Medications Discontinued Medications Generic Name Dose Route Start Last Admin Trade Name Ashley PRN Reason Stop Dose Admin Tetracaine HCl 0.5 ml 11/08/18 20:27 Tetracaine 0.5% Steri-Unit Alexus EYERT 11/08/18 20:28 ASDIRECTED ONE Tetracaine HCl Confirm 11/08/18 20:29 11/08/18 20:35 Tetracaine 0.5% Steri-Unit Alexus Administered 11/08/18 20:30 Not Given Dose 4 ml .ROUTE .STK-MED ONE Departure - Departure Time of Disposition: 20:38 Disposition: Home, Self-Care 01 Condition: Good Clinical Impression: Corneal abrasion Qualifiers: Encounter type: initial encounter Laterality: right Qualified Code(s): S05.01XA - Injury of conjunctiva and corneal abrasion without foreign body, right eye, initial encounter - Discharge Information Referrals: PCP,None [Primary Care Provider] - Additional Instructions: The following information is given to patients seen in the emergency department who are being discharged to home. This information is to outline your options for follow-up care. We provide all patients seen in our emergency department with a follow-up referral. The need for follow-up, as well as the timing and circumstances, are variable depending upon the specifics of your emergency department visit. If you don't have a primary care physician on staff, we will provide you with a referral. We always advise you to contact your personal physician following an emergency department visit to inform them of the circumstance of the visit and for follow-up with them and/or the need for any referrals to a consulting specialist. The emergency department will also refer you to a specialist when appropriate. This referral assures that you have the opportunity for followup care with a specialist. All of these measure are taken in an effort to provide you with optimal care, which includes your followup. Under all circumstances we always encourage you to contact your private physician who remains a resource for coordinating your care. When calling for followup care, please make the office aware that this follow-up is from your recent emergency room visit. If for any reason you are refused follow-up, please contact the [facility] emergency department at and ask to speak to the emergency department charge nurse. [facility]--ophthalmology [address] [place] [id number] Please use the tobramycin eyedrops your given from [employer] as directed and please call and schedule a follow-up appointment with the ophthalmology group at [facility] using resources given to above. Please wear your glasses that were prescribed to you by the automation sales manager. Return to ER as needed and as discussed - My Orders Last 24 Hours: My Active Orders 11/08/18 20:28 Communication Order [RC] STAT - Assessment/Plan Last 24 Hours: My Active Orders 11/08/18 20:28 Communication Order [RC] STAT
[2018-11-08 20:53] VITALS: BP 188/99; PULSE 77
== END 2018-11-08 20:45 | disposition home or self-care (01) ==
LOC: MW.ED 20:02
DX: S05.01XA Injury of conjunctiva and corneal abrasion without foreign body, right eye, initial encounter (principal); I10 Essential (primary) hypertension; J45.909 Unspecified asthma, uncomplicated; E78.00 Pure hypercholesterolemia, unspecified; I25.2 Old myocardial infarction; Z88.0 Allergy status to penicillin; Z79.82 Long term (current) use of aspirin; Z79.899 Other long term (current) drug therapy; Z79.51 Long term (current) use of inhaled steroids; Z90.49 Acquired absence of other specified parts of digestive tract; Z87.891 Personal history of nicotine dependence; X58.XXXA Exposure to other specified factors, initial encounter
CPT/HCPCS: 0402T; 99283

== ENCOUNTER 2019-07-07 15:36 | Emergency (ER) | payer BC, OTHER ==
[2019-07-07 15:50] VITALS: BP 138/44; PULSE 56
--- NOTE | 2019-07-07 15:50 | EDM.PDOC ---
ED HPI GENERAL MEDICAL PROBLEM - General Chief Complaint: Trauma Stated Complaint: RAN OVER BY COW Time Seen by Provider: 07/07/19 15:43 Source of Information: Reports: Patient History Limitations: Reports: No Limitations - History of Present Illness INITIAL COMMENTS - FREE TEXT/NARRATIVE: 69-year-old guerra presents to the emergency room with a chief complaint of being injured by a cow. The cow struck a gate and the gate struck him up on the ground. Patient states he has pain in his right leg and hip area. Patient denies chest pain. Patient states he has been short of breath since his operation but no new shortness of breath. Onset: Today Duration: Minutes: Location: Reports: Lower Extremity, Right Quality: Reports: Dull Severity: Mild Improves with: Reports: None Worsens with: Reports: None Associated Symptoms: Reports: No Other Symptoms Rigth hip Pain Score (Numeric/FACES): 7 - Related Data Allergies Allergy/AdvReac Type Severity Reaction Status Date / Time erythromycin base Allergy Anaphylactic Verified 07/07/19 15:43 Shock ibuprofen Allergy Other Verified 07/07/19 15:44 Penicillins Allergy Difficulty Verified 07/07/19 15:43 Breathing Home Meds: Home Meds Aspirin [Sera Chewable] 81 mg PO DAILY 09/17/13 [History] Clopidogrel [Plavix] 75 mg PO DAILY 09/17/13 [History] atorvaSTATin [Lipitor] 20 mg PO BEDTIME 09/17/13 [History] Albuterol/Ipratropium [Combivent Respimat] 0 gm IH ASDIRECTED 11/25/17 [History] Acetaminophen/oxyCODONE [Percocet 325-10 MG] 1 tab PO TID 07/07/19 [History] Budesonide [Pulmicort] 1 puff INH ASDIRECTED 07/07/19 [History] Metoprolol Succinate 50 mg PO BID 07/07/19 [History] Past Medical History HEENT History: Reports: Impaired Vision Cardiovascular History: Reports: High Cholesterol, Hypertension, [place], Stents Other Cardiovascular History: heart surgery in april 2018 Respiratory History: Reports: Asthma, Other (See Below) Other Respiratory History: smoker Gastrointestinal History: Reports: None Genitourinary History: Reports: None Musculoskeletal History: Reports: Arthritis Neurological History: Reports: None Psychiatric History: Reports: None Endocrine/Metabolic History: Reports: None Insulin Pump Model and Veterinary Laboratory Diagnostician: N/A Hematologic History: Reports: None Immunologic History: Reports: None Oncologic (Cancer) History: Reports: None Dermatologic History: Reports: None - Infectious Disease History Infectious Disease History: Reports: None - Past Surgical History Head Surgeries/Procedures: Reports: None GI Surgical History: Reports: Appendectomy Male Surgical History: Reports: None Social & Family History - Family History Family Medical History: Noncontributory - Caffeine Use Caffeine Use: Reports: Coffee Review of Systems - Review of Systems Review Of Systems: See Below Constitutional: Reports: No Symptoms Eyes: Reports: No Symptoms Ears: Reports: No Symptoms Nose: Reports: No Symptoms Mouth/Throat: Reports: No Symptoms Respiratory: Reports: Shortness of Breath Cardiovascular: Reports: No Symptoms GI/Abdominal: Reports: No Symptoms Genitourinary: Reports: No Symptoms Musculoskeletal: Reports: Leg Pain Skin: Reports: Bruising Neurological: Reports: No Symptoms Psychiatric: Reports: No Symptoms ED EXAM, GENERAL - Physical Exam Exam: See Below Exam Limited By: No Limitations General Appearance: Alert, WD/WN, No Apparent Distress, Moderate Distress Eye Exam: Bilateral Eye: Normal Fundi, Normal Inspection Ears: Normal External Exam, Normal Canal Ear Exam: Bilateral Ear: Auricle Normal, Canal Normal Nose: Normal Inspection, Normal Mucosa Throat/Mouth: Normal Inspection, Normal Lips, Normal Teeth Head: Atraumatic, Normocephalic Neck: Normal Inspection, Supple, Non-Tender Respiratory/Chest: No Respiratory Distress, Lungs Clear, Normal Breath Sounds, No Accessory Muscle Use, Chest Non-Tender Cardiovascular: Normal Peripheral Pulses, Regular Rate, Rhythm, No JVD, No Murmur GI/Abdominal: Normal Bowel Sounds, Soft, Non-Tender, No Organomegaly, No Distention, No Abnormal Bruit, No Mass (Male) Exam: Deferred Rectal (Males) Exam: Deferred Back Exam: Normal Inspection, Full Range of Motion. No: CVA Tenderness (L), CVA Tenderness (R) Extremities: Normal Range of Motion, No Pedal Edema, Normal Capillary Refill, Leg Pain Neurological: Alert, Oriented, CN II-XII Intact, Normal Cognition Psychiatric: Normal Affect, Normal Mood Skin Exam: Warm, Dry, Intact, Normal Color Lymphatic: No Adenopathy Course - Vital Signs Text/Narrative:: This is a 69-year-old gentleman presents to the emergency room chief complaint of being pushed by a fence. Patient fell down and scraped his leg. The fence was pushed by a cow and the former came to the emergency room. Multiple studies were done x-rays of the and hips which are normal. Patient had no chest pain or shortness of breath that was new. Patient's chest x-ray is negative and patient's electrolytes and cardiac enzymes are negative. This patient has an contusion to the lower leg with an abrasion. Tetanus toxoid was given and a dressing was placed on the leg and patient will be discharged home with Tylenol Last Recorded V/S: Last Vital Signs Temp 94.5 F L 07/07/19 15:48 Pulse 56 L 07/07/19 15:48 Resp 18 07/07/19 15:48 BP 138/44 L 07/07/19 15:48 Pulse Ox 94 L 07/07/19 15:48 - Orders/Labs/Meds Orders: Active Orders 24 hr Category Date Time Status Communication Order [RC] STAT Care 07/07/19 16:41 Active EKG Documentation Completion [RC] STAT Care 07/07/19 15:48 Active Vaccines to be Administered [RC] PER UNIT ROUTINE Care 07/07/19 16:45 Active Saline Lock Insert [OM.PC] Stat Oth 07/07/19 15:48 Ordered Labs: Laboratory Tests 07/07/19 07/07/19 07/07/19 Range/Units 15:40 15:40 15:40 WBC 11.65 H (4.0-11.0) K/uL RBC 4.73 (4.50-5.90) M/uL Hgb 13.9 (13.0-17.0) g/dL Hct 43.0 (38.0-50.0) % MCV 90.9 (80.0-98.0) fL MCH 29.4 (27.0-32.0) pg MCHC 32.3 (31.0-37.0) g/dL RDW Std Deviation 44.4 (28.0-62.0) fl RDW Coeff of Elizabeth 13 (11.0-15.0) % Plt Count 236 (150-400) K/uL MPV 10.20 (7.40-12.00) fL Neut % (Auto) 69.6 (48.0-80.0) % Lymph % (Auto) 16.3 (16.0-40.0) % [place] % (Auto) 11.8 (0.0-15.0) % Eos % (Auto) 2.1 (0.0-7.0) % Baso % (Auto) 0.2 (0.0-1.5) % Neut # (Auto) 8.1 H (1.4-5.7) K/uL Lymph # (Auto) 1.9 (0.6-2.4) K/uL [place] # (Auto) 1.4 H (0.0-0.8) K/uL Eos # (Auto) 0.2 (0.0-0.7) K/uL Baso # (Auto) 0.0 (0.0-0.1) K/uL Nucleated RBC % 0.0 /100WBC Nucleated RBCs # 0 K/uL INR 0.97 Sodium 140 (136-148) mmol/L Potassium 4.1 (3.5-5.1) mmol/L Chloride 104 (98-107) mmol/L Carbon Dioxide 26.7 (21.0-32.0) mmol/L BUN 26 H (7.0-18.0) mg/dL Creatinine 1.4 H (0.8-1.3) mg/dL Est Cr Clr Drug Dosing 57.90 mL/min Estimated GFR (MDRD) 50.2 ml/min Glucose 120 H (74-106) mg/dL Calcium 8.7 (8.5-10.1) mg/dL Total Bilirubin 0.3 (0.2-1.0) mg/dL AST 28 (15-37) IU/L ALT 36 (14-63) IU/L Alkaline Phosphatase 84 (46-116) U/L Troponin I < 0.050 (0.000-0.056) ng/mL Total Protein 6.8 (6.4-8.2) g/dL Albumin 3.4 (3.4-5.0) g/dL Globulin 3.4 (2.6-4.0) g/dL Albumin/Globulin Ratio 1.0 (0.9-1.6) Meds: Medications Discontinued Medications Generic Name Dose Route Start Last Admin Trade Name Freq PRN Reason Stop Dose Admin Diphtheria/Tetanus/Acell Pertussis 0.5 ml 07/07/19 16:45 Adacel IM 07/07/19 16:46 .ONCE ONE Departure - Departure Time of Disposition: 16:49 Disposition: Home, Self-Care 01 Condition: Good Clinical Impression: Leg abrasion, Contusion of leg - Discharge Information Referrals: Evelin Cortez MD [Primary Care Provider] - Forms: ED Department Discharge Sepsis Event Note - Focused Exam Vital Signs: Vital Signs Temp Pulse Resp BP Pulse Ox 07/07/19 15:48 94.5 F L 56 L 18 138/44 L 94 L Date Exam was Performed: 07/07/19 Time Exam was Performed: 16:47 - My Orders Last 24 Hours: My Active Orders 07/07/19 15:48 EKG Documentation Completion [RC] STAT Saline Lock Insert [OM.PC] Stat 07/07/19 16:41 Communication Order [RC] STAT 07/07/19 16:45 Vaccines to be Administered [RC] PER UNIT ROUTINE - Assessment/Plan Last 24 Hours: My Active Orders 07/07/19 15:48 EKG Documentation Completion [RC] STAT Saline Lock Insert [OM.PC] Stat 07/07/19 16:41 Communication Order [RC] STAT 07/07/19 16:45 Vaccines to be Administered [RC] PER UNIT ROUTINE
[2019-07-07 16:15] LABS: BLOOD UREA NITROGEN,BUN 26 mg/dL (7.0-18.0); CARBON DIOXIDE,CO2 26.7 mmol/L (21.0-32.0); CHLORIDE,CL 104 mmol/L (98-107); GLUCOSE RANDOM 120 mg/dL (74-106); POTASSIUM,K 4.1 mmol/L (3.5-5.1); SODIUM,NA 140 mmol/L (136-148)
--- NOTE | 2019-07-07 16:26 | CR ---
Chest: Portable view of the chest was obtained. Comparison: Prior chest x-ray of 10/18/18. Heart size and mediastinum are within normal limits for portable technique. Lungs are clear with no acute parenchymal change. Degenerative change is seen within both shoulders. Previous sternotomy is noted. Scoliosis is present within the spine. Impression: 1. Findings as noted above. 2. Nothing acute is appreciated on portable chest x-ray. Diagnostic code #2 This report was dictated in MDT
--- NOTE | 2019-07-07 16:26 | CR ---
Pelvis and bilateral hips: AP view of the pelvis was obtained as well as AP and frog-leg lateral views of both hips. Comparison: Prior pelvis and hip exam of 02/27/18. Findings: Diffuse joint space narrowing is seen within the left hip. Joint space of the right hip is fairly well preserved. Mild osteophytes are noted off the left femoral neck. Bony structures are slightly osteopenic. Minimal degenerative endplate spurring is noted within the lower lumbar spine. No acute fracture or dislocation is seen. Mild vascular calcification is present. Impression: 1. Degenerative change as noted above and mild vascular calcification. 2. Nothing acute is seen on AP pelvis or on bilateral hip exam. Diagnostic code #2 This report was dictated in MDT
[2019-07-07] MEDS ORDERED: Diphtheria,Pertussis(Acell),Tetanus Vaccine 0.5 ML Syringe IM ONE ×3 (16:45→17:15)
== END 2019-07-07 17:24 | disposition home or self-care (01) ==
LOC: MW.ED 15:36
DX: S80.11XA Contusion of right lower leg, initial encounter (principal); I10 Essential (primary) hypertension; E78.00 Pure hypercholesterolemia, unspecified; I25.2 Old myocardial infarction; J45.909 Unspecified asthma, uncomplicated; M19.90 Unspecified osteoarthritis, unspecified site; Z95.5 Presence of coronary angioplasty implant and graft; Z23 Encounter for immunization; Z88.0 Allergy status to penicillin; Z88.1 Allergy status to other antibiotic agents; Z88.6 Allergy status to analgesic agent; Z79.82 Long term (current) use of aspirin; Z79.02 Long term (current) use of antithrombotics/antiplatelets; Z79.899 Other long term (current) drug therapy; W22.8XXA Striking against or struck by other objects, initial encounter
CPT/HCPCS: 36415; 71045; 71045-26; 73521; 73521-26; 80053; 84484; 85025; 85610; 90471; 90715; 93005; 99282; 99284-25

== ENCOUNTER 2021-01-26 06:36 | Day surgery (SDC) | payer BC, MEDICARE, OTHER ==
--- NOTE | 2021-01-26 07:12 | PCM.PREANE ---
Preanesthetic Assessment - Procedure Proposed Procedure: Colonoscopy - Anesthesia/Transfusion/Family Hx Anesthesia History: Prior Anesthesia Without Reaction Family History of Anesthesia Reaction: No Transfusion History: No Prior Transfusion(s) - Review of Systems General: No Symptoms Pulmonary: No Symptoms (Smokes 1/2 PPD) Cardiovascular: No Symptoms (CAD with h/o CABG 2018, STENT (prior to CABG), HTN) Gastrointestinal: No Symptoms Neurological: No Symptoms Other: Reports: None - Physical Assessment NPO Status Date: 01/25/21 NPO Status Time: 20:00 Height: 6 ft 3 in Weight: 97.976 kg ASA Class: 3 Mental Status: Alert & Oriented x3 Airway Class: Mallampati = 3 Dentition: Reports: Normal Dentition Thyro-Mental Finger Breadths: 3 Mouth Opening Finger Breadths: 2 ROM/Head Extension: Full Lungs: Clear to Auscultation, Normal Respiratory Effort Cardiovascular: Regular Rate, Regular Rhythm - Allergies Allergies/Adverse Reactions: Allergies Allergy/AdvReac Type Severity Reaction Status Date / Time bee venom protein (honey bee) Allergy Airway Verified 01/22/21 14:20 Tightness doxycycline Allergy Anaphylactic Verified 01/22/21 14:20 Shock erythromycin base Allergy Anaphylactic Verified 01/22/21 14:20 Shock gentamicin [From Garamycin] Allergy Anaphylactic Verified 01/22/21 14:20 Shock ibuprofen Allergy Other Verified 01/22/21 14:20 Penicillins Allergy Anaphylactic Verified 01/22/21 14:20 Shock - Acknowledgements Anesthesia Type Planned: General Anesthesia Pt an Appropriate Candidate for the Planned Anesthesia: Yes Alternatives and Risks of Anesthesia Discussed w Pt/Guardian: Yes Pt/Guardian Understands and Agrees with Anesthesia Plan: Yes PreAnesthesia Questionnaire HEENT History: Reports: Other (See Below) Other HEENT History: uses glasses for reading Cardiovascular History: Reports: High Cholesterol, Hypertension, [place] Other Cardiovascular History: heart surgery in april 2018 Respiratory History: Reports: COPD, Other (See Below) Other Respiratory History: hx of partially paralyzed left diaphram post CABG- states "it is better now", uses CPAP every night because of this Gastrointestinal History: Reports: Chronic Constipation, Other (See Below) Other Gastrointestinal History: occasionally takes Rolaids for heartburn, currently has some rectal bleeding Genitourinary History: Reports: None Musculoskeletal History: Reports: Arthritis Neurological History: Reports: Concussion Psychiatric History: Reports: None Endocrine/Metabolic History: Reports: None Hematologic History: Reports: Anticoagulation Therapy Immunologic History: Reports: None Oncologic (Cancer) History: Reports: None Dermatologic History: Reports: None - Infectious Disease History Infectious Disease History: Reports: None - Past Surgical History Head Surgeries/Procedures: Reports: None HEENT Surgical History: Reports: Tonsillectomy Cardiovascular Surgical History: Reports: Coronary Artery Bypass, Coronary Artery Stent Other Cardiovascular Surgeries/Procedures: 3 vessel CABG 3 years ago- no chest pain since Respiratory Surgical History: Reports: None GI Surgical History: Reports: Appendectomy Male Surgical History: Reports: None Endocrine Surgical History: Reports: None Neurological Surgical History: Reports: None Musculoskeletal Surgical History: Reports: Arthroscopic Knee Oncologic Surgical History: Reports: None Dermatological Surgical History: Reports: None - SUBSTANCE USE Tobacco Use Status *Q: Current Every Day Tobacco User Tobacco Use Within Last Twelve Months: Cigarettes Recreational Drug Use History: No - HOME MEDS Home Medications: Home Meds Aspirin [Sera Chewable] 81 mg PO DAILY 09/17/13 [History] Clopidogrel [Plavix] 75 mg PO DAILY 09/17/13 [History] atorvaSTATin [Lipitor] 20 mg PO BEDTIME 09/17/13 [History] Budesonide [Pulmicort] 0.25 mg NEB BID 07/07/19 [History] Metoprolol Succinate 50 mg PO BID 07/07/19 [History] Albuterol Sulfate [Proair Hfa] 1 - 2 puff INH Q4H PRN 12/18/20 [History] Albuterol/Ipratropium [Combivent Respimat] 1 puff INH ASDIRECTED PRN 12/18/20 [History] Cholecalciferol (Vitamin D3) [Vitamin D3] 1,000 unit PO DAILY 12/18/20 [History] Cyanocobalamin (Vitamin B12) [Vitamin B12] 500 mcg PO DAILY 12/18/20 [History] Fish Oil/[place]-3 Fatty Acids [Fish Oil 1,000 MG] 1,000 mg PO DAILY 12/18/20 [History] Ipratropium/Albuterol Sulfate [Iprat-Albut 0.5-3(2.5) MG/3 ML] 1 ampule INH BID 12/18/20 [History] Nitroglycerin [Nitrostat] 0.4 mg SL ASDIRECTED PRN 12/18/20 [History] hydroCHLOROthiazide [Hydrochlorothiazide] 25 mg PO DAILY 12/18/20 [History] oxyCODONE HCl/Acetaminophen [Oxycodone-Acetaminophen 5-325] 1 tab PO Q4H PRN 12/18/20 [History] - CURRENT (IN HOUSE) MEDS Current Meds: Current Medications Lactated Ringer's (Ringers, Lactated) 1,000 mls @ 125 mls/hr IV ASDIRECTED JOSELIN
[2021-01-26] MEDS ORDERED: Propofol 200 MG/20 ML SDV ONE (07:15)
[2021-01-26] MEDS ORDERED: fentaNYL 100 MCG/2 ML SDV ONE (07:16)
--- NOTE | 2021-01-26 08:27 | PCM.OPNOTE ---
- General Post-Op/Procedure Note Date of Surgery/Procedure: 01/26/21 Operative Procedure(s): Colonoscopy with cold transverse colon polypectomy Pre Op Diagnosis: Rectal bleeding Post-Op Diagnosis: Transverse colon polyp. Mild sigmoid diverticulosis. Anesthesia Technique: MAC (ASA III) Primary Surgeon: Ok Berman Condition: Good Free Text/Narrative:: DICTATION [id number] CPT CODE [id number]
[2021-01-26] MEDS ORDERED: Lactated Ringers 1,000 ML IV SCH ×2 (08:30)
--- NOTE | 2021-01-26 08:37 | PCM.POSTAN ---
POST ANESTHESIA ASSESSMENT - MENTAL STATUS Mental Status: Alert, Oriented - VITAL SIGNS Vital Signs: Last Vital Signs Temp 97.9 F 01/26/21 08:23 Pulse 63 01/26/21 08:34 Resp 16 01/26/21 08:34 BP 70/44 L 01/26/21 08:34 Pulse Ox 97 01/26/21 08:34 - RESPIRATORY Respiratory Status: Respiratory Rate WNL, Airway Patent, O2 Saturation Stable - CARDIOVASCULAR CV Status: Pulse Rate WNL, Blood Pressure Stable - GASTROINTESTINAL GI Status: No Symptoms - PAIN Pain Score: 0 - POST OP HYDRATION Hydration Status: Adequate & Stable
--- NOTE | 2021-01-26 09:14 | PCM48HPAN ---
Post Anesthesia Note - EVALUATION WITHIN 48HRS OF ANESTHETIC Vital Signs in Normal Range: Yes Patient Participated in Evaluation: Yes Respiratory Function Stable: Yes Airway Patent: Yes Cardiovascular Function Stable: Yes Hydration Status Stable: Yes Pain Control Satisfactory: Yes Nausea and Vomiting Control Satisfactory: Yes Mental Status Recovered: Yes Vital Signs: Last Vital Signs Temp 97.9 F 01/26/21 08:23 Pulse 61 01/26/21 08:49 Resp 14 01/26/21 08:49 BP 94/54 L 01/26/21 08:49 Pulse Ox 97 01/26/21 08:49 - COMMENTS/OBSERVATIONS Free Text/Narrative:: Pt doing well post-op. VSS. No apparent anesthetic complications. Dr. Jermaine Corona
[2021-01-26 09:22] VITALS: BP 132/61; PULSE 65
--- NOTE | 2021-01-26 14:53 | OR ---
SURGEON: Ok Berman M.D. DATE OF PROCEDURE: 01/26/2021 OPERATION PERFORMED: Colonoscopy with cold transverse colon polypectomy. PRIMARY SURGEON: Ok Berman M.D. ANESTHESIA: MAC. ASA CLASSIFICATION: III. PREOPERATIVE DIAGNOSIS: Rectal bleeding. POSTOPERATIVE DIAGNOSES: 1. Transverse colon polyps. 2. Sigmoid diverticulosis. DESCRIPTION OF PROCEDURE: The patient was taken to the endoscopy room and positioned on the endoscopy table in the left lateral decubitus position. Time-out was called for appropriate identification of patient and procedure. Monitored anesthesia care was provided. The colonoscope was inserted into the rectum and advanced without difficulty to the cecum. The cecum was identified by internal landmarks and external pressure. The colonoscope was retroflexed to visualize the ascending colon from below and then straightened and slowly withdrawn. The cecum, ascending colon, hepatic flexure, and proximal transverse colon showed no tumors, polyps, diverticula, or angiodysplastic changes. Two small polyps were encountered in close proximity in the transverse colon and removed with the cold biopsy forceps. The distal transverse colon, splenic flexure, and descending colon showed no tumors, polyps, diverticula, or angiodysplastic changes. The sigmoid colon itself demonstrated moderate diverticular change. No stricture, spasm, or bleeding was noted. Once the colonoscope was withdrawn to the rectum, it was retroflexed to visualize the anal orifice from above. No tumors, polyps, or acute hemorrhoidal changes were noted. The colonoscope was then straightened, the rectum aspirated, and the colonoscope removed. The patient tolerated the procedure well and was taken to recovery room in stable condition. FAVIOLA / HILDA /[id number]
== END 2021-01-26 09:24 | disposition home or self-care (01) ==
LOC: MW.SDS 06:36
PROVIDERS: ATTEND Surgery
DX: D12.3 Benign neoplasm of transverse colon (principal); K57.31 Diverticulosis of large intestine without perforation or abscess with bleeding; I25.2 Old myocardial infarction; I10 Essential (primary) hypertension; E78.00 Pure hypercholesterolemia, unspecified; F17.210 Nicotine dependence, cigarettes, uncomplicated; I25.10 Atherosclerotic heart disease of native coronary artery without angina pectoris; J44.9 Chronic obstructive pulmonary disease, unspecified; G47.33 Obstructive sleep apnea (adult) (pediatric); Z88.0 Allergy status to penicillin; Z88.8 Allergy status to other drugs, medicaments and biological substances; Z91.018 Allergy to other foods; Z91.030 Bee allergy status; Z79.82 Long term (current) use of aspirin; Z79.899 Other long term (current) drug therapy; Z90.49 Acquired absence of other specified parts of digestive tract; Z98.890 Other specified postprocedural states
CPT/HCPCS: 45380; J2370; J2704; J3010; 00811; 99100

== ENCOUNTER 2021-09-10 22:11 | Emergency (ER) | payer BC, MEDICARE, OTHER ==
[2021-09-11 05:08] VITALS: BP 132/71; PULSE 70
== END 2021-09-10 23:50 | disposition home or self-care (01) ==
LOC: MW.ED 22:11
DX: K43.2 Incisional hernia without obstruction or gangrene (principal); J44.9 Chronic obstructive pulmonary disease, unspecified; I10 Essential (primary) hypertension; I25.2 Old myocardial infarction; Z91.030 Bee allergy status; Z88.8 Allergy status to other drugs, medicaments and biological substances; Z88.1 Allergy status to other antibiotic agents; Z88.0 Allergy status to penicillin; Z88.6 Allergy status to analgesic agent; Z79.899 Other long term (current) drug therapy; Z79.82 Long term (current) use of aspirin; Z90.49 Acquired absence of other specified parts of digestive tract
CPT/HCPCS: 99283

== ENCOUNTER 2023-10-03 15:51 | Inpatient (IN) | payer MEDICARE, OTHER ==
[2023-10-03] MEDS: Morphine 4 MG/ML Syringe IM ONE (17:47)
[2023-10-03] MEDS: cefTRIAXone 1 GM Vial IM ONE (17:47)
[2023-10-03] MEDS: VANCOmycin 1.5 GM/300 ML 1.5 GM in Premix Bag 1 BAG IV ONE (17:48)
[2023-10-03] MEDS: cefTRIAXone 1 GM in Sodium Chloride 0.9% 50 ML IV ONE (17:49)
[2023-10-03 17:50] LABS: BASOPHILS ABSOLUTE AUTO 0.02 K/uL (0.00-0.20); BASOPHILS PERCENT AUTO 0.2 % (0.0-1.0); EOSINOPHILS ABSOLUTE AUTO 0.19 K/uL (0.00-0.45); EOSINOPHILS PERCENT AUTO 2.3 % (0.0-6.0); HEMATOCRIT 34.3 % (42.0-52.0); HEMOGLOBIN 10.9 g/dL (14.0-18.0); IMMATURE GRAN ABSOLUTE AUTO 0.02 K/uL (0.00-0.05); IMMATURE GRAN PERCENT AUTO 0.2 % (0.0-0.4); LYMPHOCYTES ABSOLUTE AUTO 1.53 K/uL (1.00-4.80); LYMPHOCYTES PERCENT AUTO 18.3 % (24.0-44.0); MEAN CORPUSCULAR HEMOGLOBIN 26.5 pg (28.0-32.0); MEAN CORPUSCULAR HGB CONC 31.8 g/dL (32.0-36.0); MEAN CORPUSCULAR VOLUME 83.5 fL (83.0-99.0); MEAN PLATELET VOLUME 9.5 fL (9.4-12.4); MONOCYTES PERCENT AUTO 14.3 % (0.0-8.0); NEUTROPHILS ABSOLUTE AUTO 5.41 K/uL (1.80-7.70); NEUTROPHILS PERCENT AUTO 64.7 % (41.0-71.0); PLATELET COUNT,PLT 369 K/uL (150-400); RED BLOOD CELL COUNT 4.11 M/uL (4.52-5.90); WHITE BLOOD CELL COUNT,WBC 8.37 K/uL (3.9-11.3)
[2023-10-03] MEDS: Morphine 2 MG/ML SYRINGE IVPUSH ONE (17:52)
[2023-10-03 18:22] LABS: A/G RATIO 0.8 (0.9-1.6); BILIRUBIN TOTAL 0.6 mg/dL (0.2-1.0); CALCIUM 8.9 mg/dL (8.5-10.1); CREATININE 1.7 mg/dL (0.8-1.3); POTASSIUM,K 4.8 mmol/L (3.5-5.1); PROTEIN TOTAL,TP 6.9 g/dL (6.4-8.2)
[2023-10-03 18:25] LABS: LACTIC ACID 1.2 mmol/L (0.4-2.0)
[2023-10-03] MEDS ORDERED: Albuterol/Ipratropium 3.0-0.5 MG/3 ML Neb Soln NEB PRN (18:42)
[2023-10-03] MEDS ORDERED: Albuterol 0.083% 2.5 MG/3 ML Neb Soln NEB PRN (18:42)
[2023-10-03] MEDS ORDERED: Ondansetron 4 MG Tab.DIS PO PRN (18:42)
[2023-10-03] MEDS ORDERED: Polyethylene Glycol 3350 Powder 17 GM Packet PO PRN (18:42)
[2023-10-03] MEDS ORDERED: Non-Formulary Medication 1 Each (Albuterol/Ipratropium [Combivent Respimat] 4 GM Inhaler) INH PRN (19:14)
[2023-10-03] MEDS ORDERED: Albuterol 8 GM Inhaler INH PRN (19:14)
[2023-10-03] MEDS ORDERED: Piperacillin/Tazobactam 4.5 GM in Sodium Chloride 0.9% 100 ML IV SCH (19:15)
[2023-10-03] MEDS: Metoprolol Tartrate 50 MG Tab PO SCH (21:08)
[2023-10-03] MEDS: traMADol 50 MG Tab PO SCH (21:09)
[2023-10-03] MEDS: Apixaban 5 MG Tab PO SCH (21:10)
[2023-10-03] MEDS: atorvaSTATin 40 MG Tab PO SCH (21:10)
[2023-10-03] MEDS: Sodium Chloride 0.9% 1,000 ML IV SCH (21:11)
[2023-10-03] MEDS: Cefepime 2 GM in Sodium Chloride 0.9% 50 ML IV SCH (21:12)
[2023-10-03] MEDS: Budesonide 0.5 MG/2 ML Neb Susp NEB SCH (21:12)
[2023-10-04 05:56] LABS: BASOPHILS ABSOLUTE AUTO 0.02 K/uL (0.00-0.20); BASOPHILS PERCENT AUTO 0.3 % (0.0-1.0); EOSINOPHILS ABSOLUTE AUTO 0.15 K/uL (0.00-0.45); EOSINOPHILS PERCENT AUTO 2.1 % (0.0-6.0); HEMATOCRIT 30.5 % (42.0-52.0); HEMOGLOBIN 9.8 g/dL (14.0-18.0); IMMATURE GRAN ABSOLUTE AUTO 0.02 K/uL (0.00-0.05); IMMATURE GRAN PERCENT AUTO 0.3 % (0.0-0.4); LYMPHOCYTES ABSOLUTE AUTO 0.91 K/uL (1.00-4.80); LYMPHOCYTES PERCENT AUTO 12.6 % (24.0-44.0); MEAN CORPUSCULAR HEMOGLOBIN 26.6 pg (28.0-32.0); MEAN CORPUSCULAR HGB CONC 32.1 g/dL (32.0-36.0); MEAN CORPUSCULAR VOLUME 82.7 fL (83.0-99.0); MEAN PLATELET VOLUME 9.5 fL (9.4-12.4); MONOCYTES ABSOLUTE AUTO 1.18 K/uL (0.00-0.80); MONOCYTES PERCENT AUTO 16.3 % (0.0-8.0); NEUTROPHILS ABSOLUTE AUTO 4.94 K/uL (1.80-7.70); NEUTROPHILS PERCENT AUTO 68.4 % (41.0-71.0); PLATELET COUNT,PLT 322 K/uL (150-400); RED BLOOD CELL COUNT 3.69 M/uL (4.52-5.90); WHITE BLOOD CELL COUNT,WBC 7.22 K/uL (3.9-11.3)
[2023-10-04 06:27] LABS: A/G RATIO 0.7 (0.9-1.6); ALBUMIN 2.4 g/dL (3.4-5.0); BILIRUBIN TOTAL 0.5 mg/dL (0.2-1.0); CALCIUM 8.6 mg/dL (8.5-10.1); CARBON DIOXIDE,CO2 21.2 mmol/L (21.0-32.0); CREATININE 1.4 mg/dL (0.8-1.3); EST CRCL DRUG DOSING (CG) 54.64 mL/min; MAGNESIUM 1.8 mg/dL (1.8-2.4); PHOSPHORUS 2.9 mg/dL (2.6-4.7); POTASSIUM,K 4.8 mmol/L (3.5-5.1); PROTEIN TOTAL,TP 5.8 g/dL (6.4-8.2)
[2023-10-04] MEDS: Furosemide 20 MG Tab PO SCH (08:22)
[2023-10-04] MEDS: Lisinopril 10 MG Tab PO SCH (08:22)
[2023-10-04] MEDS: Aspirin 81 MG Tab.Chew PO SCH (08:23)
[2023-10-04] MEDS: Acetaminophen/oxyCODONE 325-5 MG Tab PO PRN ×2 (08:34→21:20)
[2023-10-04] MEDS ORDERED: Clopidogrel 75 MG Tab PO SCH (09:00)
[2023-10-04] MEDS: VANCOmycin 1.5 GM/300 ML 1.5 GM in Premix Bag 1 BAG IV SCH (09:32)
[2023-10-04 10:45] LABS: HEMOGLOBIN A1C 6.1 %
[2023-10-04] MEDS: FORMOTEROL FUMARATE 20 MCG/2 ML INH SCH (11:38)
[2023-10-04] MEDS: Acetaminophen 325 MG Tab PO PRN (20:36)
[2023-10-05] MEDS: Melatonin 3 MG Tab PO PRN (00:55)
[2023-10-05 05:54] LABS: BASOPHILS ABSOLUTE AUTO 0.03 K/uL (0.00-0.20); BASOPHILS PERCENT AUTO 0.4 % (0.0-1.0); EOSINOPHILS ABSOLUTE AUTO 0.34 K/uL (0.00-0.45); EOSINOPHILS PERCENT AUTO 4.6 % (0.0-6.0); HEMATOCRIT 33.1 % (42.0-52.0); HEMOGLOBIN 10.7 g/dL (14.0-18.0); IMMATURE GRAN ABSOLUTE AUTO 0.01 K/uL (0.00-0.05); IMMATURE GRAN PERCENT AUTO 0.1 % (0.0-0.4); LYMPHOCYTES ABSOLUTE AUTO 1.42 K/uL (1.00-4.80); MEAN CORPUSCULAR HEMOGLOBIN 26.9 pg (28.0-32.0); MEAN CORPUSCULAR HGB CONC 32.3 g/dL (32.0-36.0); MEAN CORPUSCULAR VOLUME 83.2 fL (83.0-99.0); MEAN PLATELET VOLUME 9.3 fL (9.4-12.4); MONOCYTES ABSOLUTE AUTO 1.43 K/uL (0.00-0.80); MONOCYTES PERCENT AUTO 19.2 % (0.0-8.0); NEUTROPHILS ABSOLUTE AUTO 4.23 K/uL (1.80-7.70); NEUTROPHILS PERCENT AUTO 56.7 % (41.0-71.0); PLATELET COUNT,PLT 338 K/uL (150-400); RED BLOOD CELL COUNT 3.98 M/uL (4.52-5.90); WHITE BLOOD CELL COUNT,WBC 7.46 K/uL (3.9-11.3)
[2023-10-05 06:23] LABS: A/G RATIO 0.7 (0.9-1.6); ALBUMIN 2.6 g/dL (3.4-5.0); BILIRUBIN TOTAL 0.6 mg/dL (0.2-1.0); CALCIUM 8.9 mg/dL (8.5-10.1); CARBON DIOXIDE,CO2 22.3 mmol/L (21.0-32.0); CREATININE 1.4 mg/dL (0.8-1.3); EST CRCL DRUG DOSING (CG) 54.64 mL/min; POTASSIUM,K 4.7 mmol/L (3.5-5.1); PROTEIN TOTAL,TP 6.2 g/dL (6.4-8.2)
[2023-10-05] MEDS: VANCOmycin 1.5 GM/300 ML 1.5 GM in Premix Bag 1 BAG IV SCH (09:59)
[2023-10-05] MEDS: Albuterol/Ipratropium 3.0-0.5 MG/3 ML Neb Soln NEB SCH (20:51)
[2023-10-05] MEDS: traMADol 50 MG Tab PO ONE (23:23)
[2023-10-06 06:31] LABS: BASOPHILS ABSOLUTE AUTO 0.04 K/uL (0.00-0.20); BASOPHILS PERCENT AUTO 0.5 % (0.0-1.0); EOSINOPHILS ABSOLUTE AUTO 0.32 K/uL (0.00-0.45); EOSINOPHILS PERCENT AUTO 3.9 % (0.0-6.0); HEMATOCRIT 32.8 % (42.0-52.0); HEMOGLOBIN 10.5 g/dL (14.0-18.0); IMMATURE GRAN ABSOLUTE AUTO 0.02 K/uL (0.00-0.05); IMMATURE GRAN PERCENT AUTO 0.2 % (0.0-0.4); LYMPHOCYTES ABSOLUTE AUTO 1.27 K/uL (1.00-4.80); LYMPHOCYTES PERCENT AUTO 15.6 % (24.0-44.0); MEAN CORPUSCULAR HEMOGLOBIN 26.6 pg (28.0-32.0); MEAN CORPUSCULAR VOLUME 83.2 fL (83.0-99.0); MEAN PLATELET VOLUME 9.5 fL (9.4-12.4); MONOCYTES ABSOLUTE AUTO 1.28 K/uL (0.00-0.80); MONOCYTES PERCENT AUTO 15.7 % (0.0-8.0); NEUTROPHILS ABSOLUTE AUTO 5.22 K/uL (1.80-7.70); NEUTROPHILS PERCENT AUTO 64.1 % (41.0-71.0); PLATELET COUNT,PLT 366 K/uL (150-400); RED BLOOD CELL COUNT 3.94 M/uL (4.52-5.90); WHITE BLOOD CELL COUNT,WBC 8.15 K/uL (3.9-11.3)
[2023-10-06 06:54] LABS: ALBUMIN 2.4 g/dL (3.4-5.0); BILIRUBIN TOTAL 0.5 mg/dL (0.2-1.0); CARBON DIOXIDE,CO2 25.2 mmol/L (21.0-32.0); CREATININE 1.3 mg/dL (0.8-1.3); EST CRCL DRUG DOSING (CG) 58.84 mL/min; POTASSIUM,K 4.7 mmol/L (3.5-5.1); PROTEIN TOTAL,TP 6.1 g/dL (6.4-8.2)
[2023-10-06 06:56] LABS: A/G RATIO 0.7 (0.9-1.6)
[2023-10-06 12:31] VITALS: BP 156/89; PULSE 85
== END 2023-10-06 12:00 | disposition home or self-care (01) | DRG 603 ==
LOC: MW.ED 15:51 → MW.MS 17:53
PROVIDERS: ADMIT Family Medicine; ATTEND Family Medicine
DX: L03.116 Cellulitis of left lower limb (principal); I10 Essential (primary) hypertension; N17.9 Acute kidney failure, unspecified; Z66 Do not resuscitate; I48.91 Unspecified atrial fibrillation; J44.9 Chronic obstructive pulmonary disease, unspecified; I25.10 Atherosclerotic heart disease of native coronary artery without angina pectoris; E78.00 Pure hypercholesterolemia, unspecified; K59.09 Other constipation; M19.90 Unspecified osteoarthritis, unspecified site; N18.9 Chronic kidney disease, unspecified; Z88.6 Allergy status to analgesic agent; I12.9 Hypertensive chronic kidney disease with stage 1 through stage 4 chronic kidney disease, or unspecified chronic kidney disease; Z95.1 Presence of aortocoronary bypass graft; Z79.01 Long term (current) use of anticoagulants; Z79.899 Other long term (current) drug therapy; Z88.1 Allergy status to other antibiotic agents; Z88.0 Allergy status to penicillin; Z88.8 Allergy status to other drugs, medicaments and biological substances; Z91.030 Bee allergy status; Z79.82 Long term (current) use of aspirin; Z79.02 Long term (current) use of antithrombotics/antiplatelets; Z79.51 Long term (current) use of inhaled steroids; Z79.2 Long term (current) use of antibiotics; I25.2 Old myocardial infarction; Z98.890 Other specified postprocedural states; Z90.89 Acquired absence of other organs; Z95.5 Presence of coronary angioplasty implant and graft; Z90.49 Acquired absence of other specified parts of digestive tract; Z86.718 Personal history of other venous thrombosis and embolism
CPT/HCPCS: 36415; 73600; 73620; 80053; 82550; 83605; 85025; 85652; 87040 ×2; 96374; 99285; J0696; J2270; J3372; J3490; 80061; 80202; 83036; 83735; 84100; 93971-26-LT; 93971-LT; 99284; A9270-GY; J0692; J3535-GY; J7030; J7620-GY